=== PATIENT | male | born 1995 | race Caucasian/White ===

== ENCOUNTER 2016-12-31 13:23 | Emergency (ER) | payer OTHER ==
[2016-12-31 13:40] VITALS: RESP 18; TEMP 97.5
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
[2016-12-31] MEDS ORDERED: ACETAMINOPHEN TAB 500 MG TAB PO STA (14:45)
--- NOTE | 2016-12-31 14:58 | CT ---
EXAMINATION TYPE: CT brain wo con DATE OF EXAM: 12/31/2016 2:38 PM COMPARISON: NONE HISTORY: Patient complains of seizure today with a history of prior seizures. Seizures are becoming more frequent. Patient complains of headache post seizure. CT DLP: [address] of the brain was performed. The ventricles, basal cisterns and sulci overlying the cerebral convexities demonstrate a normal appe arance. There is no evidence for intracranial hemorrhage or sulcal effacement. No mass effects are seen. Osseous calvarium is intact. Mild left frontal scalp hematoma. If symptoms persist consider MRI as clinically warranted. IMPRESSION: 1. No acute intracranial process is seen at this time.
[2016-12-31 15:45] VITALS: BP 114/53; PULSE 65
== END 2016-12-31 15:43 | disposition home or self-care (01) ==
LOC: EC 13:23
DX: G40.409 Other generalized epilepsy and epileptic syndromes, not intractable, without status epilepticus (principal); M79.89 Other specified soft tissue disorders; R11.0 Nausea; Z79.899 Other long term (current) drug therapy
CPT/HCPCS: 36415; 70450; 80164; 99285